=== PATIENT | male | born 1980 | race Native Hawaiian/Other Pacific Islander ===

== ENCOUNTER 2017-04-13 17:07 | Emergency (ER) | payer BC, OTHER ==
[2016-10-29 16:45] VITALS: BMI 23.3
[2017-04-13 17:17] VITALS: BP 131/93; PULSE 79; RESP 20; TEMP 98.7; O2SAT 99
--- NOTE | 2017-04-13 17:38 | ED PDOC ---
HPI: Eye Injury/Pain Time Seen by Provider: 04/13/17 17:20 Chief Complaint (Nursing): Eye Problem Chief Complaint (Provider): eye reddness History Per: Patient History/Exam Limitations: no limitations Additional Complaint(s): 37yo M in ED for eval of left eye-redness, swelling itching and d/c yellow this AM with crusting. hx of conjunctivitis. no FB sensation no photophobia or injury to eye Past Medical History Reviewed: Historical Data, Nursing Documentation, Vital Signs Vital Signs: Last Vital Signs Temp 98.7 F 04/13/17 17:14 Pulse 79 04/13/17 17:14 Resp 20 04/13/17 17:14 BP 131/93 H 04/13/17 17:14 Pulse Ox 99 04/13/17 17:14 - Medical History PMH: Asthma Denies: Anxiety, Bipolar Disorder, Depression, Personality Disorder, Post Traumatic Stress Disorder, Chronic Kidney Disease, Schizophrenia - Surgical History Surgical History: Appendectomy - Family History Family History: States: Unknown Family Hx - Immunization History Hx Tetanus Toxoid Vaccination: Yes Hx Influenza Vaccination: No Hx Pneumococcal Vaccination: No - Home Medications Home Medications: Ambulatory Orders Medication Instructions Recorded Ciprofloxacin HCl [Cipro] 500 mg PO BID #10 tab 10/05/15 Azithromycin [Zithromax] 250 mg PO DAILY #1 packet 07/07/16 Fluticasone Propionate [Flonase 1 spray NS DAILY #1 bot 07/07/16 Allergy Relief] Ibuprofen [Motrin Tab] 800 mg PO TID PRN #21 tab 07/07/16 Loratadine/Pseudoephedrine 1 each PO DAILY #7 tab.er.24h 07/07/16 [Claritin-D 24 Hour Tablet] Oseltamivir Phosphate [Tamiflu] 75 mg PO BID #10 capsule 07/07/16 Tobramycin [Tobrex] 1 - 2 drop OP TID #5 ml 04/13/17 - Allergies Allergies/Adverse Reactions: Allergies Allergy/AdvReac Type Severity Reaction Status Date / Time Penicillins Allergy RASH Verified 08/01/15 16:59 Review of Systems ROS Statement: Except As Marked, All Systems Reviewed And Found Negative Constitutional: Negative for: Fever, Chills Eyes: Positive for: Eyelid Inflammation, Redness Physical Exam - Reviewed Nursing Documentation Reviewed: Yes Vital Signs Reviewed: Yes - Physical Exam Appears: Positive for: Well, Non-toxic, No Acute Distress Skin: Positive for: Normal Color, Warm, DRY Eye Exam: Positive for: EOMI, PERRL, Conjunctival injection (ccobblestoning noted. swelling to lower lid noted. ). Negative for: Nystagmus, Periorbital swelling, Periorbital tenderness Neurologic/Psych: Positive for: Alert, Oriented - ECG O2 Sat by Pulse Oximetry: 99 Medical Decision Making Medical Decision Making: dx conjunctivitis Rx tobramycin f.u with pmd Disposition - Clinical Impression Clinical Impression: Conjunctivitis - Patient ED Disposition Is Patient to be Admitted: No Counseled Patient/Family Regarding: Diagnosis, Need For Followup, Rx Given - Disposition Disposition: Routine/Home Disposition Time: 17:36 Condition: STABLE Prescriptions: Tobramycin [Tobrex] 1 - 2 drop OP TID #5 ml Instructions: Conjunctivitis (ED) Forms: [facility] ED School/Work Excuse Print Language: ICELANDIC
== END 2017-04-13 17:49 | disposition home or self-care (01) ==
LOC: H.ER 17:07
DX: H10.9 Unspecified conjunctivitis (principal)

== ENCOUNTER 2017-08-14 16:44 | Emergency (ER) | payer BC ==
[2017-08-14 16:44] VITALS: BMI 23.3
[2017-08-14 17:12] VITALS: BP 123/84; PULSE 72; RESP 18; TEMP 97.5; O2SAT 98
--- NOTE | 2017-08-14 17:17 | ED PDOC ---
HPI: Eye Injury/Pain Time Seen by Provider: 08/14/17 17:16 Chief Complaint (Nursing): ENT Problem Chief Complaint (Provider): left eye irritation History Per: Patient Additional Complaint(s): 37-year-old male presents to emergency department complaining of irritation and redness to left eye that started today. She states today he woke up with crusted discharge from left eye. Right eye unaffected. Patient does wear contacts but not wearing them at the present time. Patient denies any headache or vision changes. Denies fever or chills. Past Medical History Reviewed: Historical Data, Nursing Documentation, Vital Signs Vital Signs: Last Vital Signs Temp 97.5 F L 08/14/17 17:08 Pulse 72 08/14/17 17:08 Resp 18 08/14/17 17:08 BP 123/84 08/14/17 17:08 Pulse Ox 98 08/14/17 17:08 - Medical History PMH: Asthma - Surgical History Surgical History: Appendectomy - Family History Family History: States: No Known Family Hx - Living Arrangements Living Arrangements: With Friends/Others - Social History Current smoker - smoking cessation education provided: No Alcohol: Social Drugs: Denies - Immunization History Hx Tetanus Toxoid Vaccination: Yes Hx Influenza Vaccination: No Hx Pneumococcal Vaccination: No - Home Medications Home Medications: Ambulatory Orders Medication Instructions Recorded Ciprofloxacin HCl [Cipro] 500 mg PO BID #10 tab 10/05/15 Azithromycin [Zithromax] 250 mg PO DAILY #1 packet 07/07/16 Fluticasone Propionate [Flonase 1 spray NS DAILY #1 bot 07/07/16 Allergy Relief] Ibuprofen [Motrin Tab] 800 mg PO TID PRN #21 tab 07/07/16 Loratadine/Pseudoephedrine 1 each PO DAILY #7 tab.er.24h 07/07/16 [Claritin-D 24 Hour Tablet] Oseltamivir Phosphate [Tamiflu] 75 mg PO BID #10 capsule 07/07/16 Tobramycin [Tobrex] 1 - 2 drop OP TID #5 ml 04/13/17 Tobramycin [Tobrex] 5 ml TOP QID #1 bottle 08/14/17 - Allergies Allergies/Adverse Reactions: Allergies Allergy/AdvReac Type Severity Reaction Status Date / Time Penicillins Allergy RASH Verified 08/14/17 17:12 Review of Systems ROS Statement: Except As Marked, All Systems Reviewed And Found Negative Constitutional: Negative for: Fever Eyes: Positive for: Other (Discharge and redness from left eye). Negative for: Vision Change Neurological: Negative for: Headache, Dizziness Physical Exam - Reviewed Nursing Documentation Reviewed: Yes Vital Signs Reviewed: Yes - Physical Exam Appears: Positive for: Well, Non-toxic, No Acute Distress Skin: Negative for: Rash Eye Exam: Positive for: Other (Left eye demonstrates moderate conjunctival injection with scant yellow discharge noted, no gross foreign body, right eye within normal limits, no periorbital swelling or tenderness bilaterally) ENT: Positive for: Normal ENT Inspection Neurologic/Psych: Positive for: Alert, Oriented - ECG O2 Sat by Pulse Oximetry: 98 Pulse Ox Interpretation: Normal Medical Decision Making Medical Decision Making: Impression: Conjunctivitis Plan: Rx given for tobramycin ophthalmic. Advised NSAIDs for pain as needed. Patient was referred to heating operators engineer instrumentation specialist and was instructed to follow-up in 1-2 days. Disposition - Clinical Impression Clinical Impression: Conjunctivitis - Patient ED Disposition Is Patient to be Admitted: No Counseled Patient/Family Regarding: Diagnosis, Need For Followup, Rx Given - Disposition Referrals: Trenton Mcintosh MD [Staff Provider] - Disposition: Routine/Home Disposition Time: 17:30 Condition: STABLE Additional Instructions: Administer drops as directed. [id number] Tylenol or ibuprofen for pain as needed. Do not resume use of contact lenses until cleared by heating operators engineer to do so. Prescriptions: Tobramycin [Tobrex] 5 ml TOP QID #1 bottle Instructions: Conjunctivitis (ED) Forms: [employer] ([place]), [facility] ED School/Work Excuse
== END 2017-08-14 17:35 | disposition home or self-care (01) ==
LOC: H.ER 16:44
DX: H10.9 Unspecified conjunctivitis (principal); Z88.0 Allergy status to penicillin